=== PATIENT | female | born 1935 | race African-American/Black ===

== ENCOUNTER → 2016-07-04 | Outpatient (CLI) | payer OTHER | LOC: HYPER 07:09 | DX: I83.023 Varicose veins of left lower extremity with ulcer of ankle (principal); L97.322 Non-pressure chronic ulcer of left ankle with fat layer exposed; I11.0 Hypertensive heart disease with heart failure; I50.20 Unspecified systolic (congestive) heart failure; I73.9 Peripheral vascular disease, unspecified; I48.91 Unspecified atrial fibrillation; E78.00 Pure hypercholesterolemia, unspecified ==

== ENCOUNTER → 2016-07-18 | Outpatient (CLI) | payer OTHER | LOC: HYPER 07:20 | DX: I83.028 Varicose veins of left lower extremity with ulcer other part of lower leg (principal); L97.321 Non-pressure chronic ulcer of left ankle limited to breakdown of skin; L97.821 Non-pressure chronic ulcer of other part of left lower leg limited to breakdown of skin; I73.9 Peripheral vascular disease, unspecified; I11.0 Hypertensive heart disease with heart failure; I50.9 Heart failure, unspecified; I48.91 Unspecified atrial fibrillation; E78.00 Pure hypercholesterolemia, unspecified ==

== ENCOUNTER → 2016-08-08 | Outpatient (CLI) | payer OTHER | LOC: HYPER 07:12 | DX: I83.028 Varicose veins of left lower extremity with ulcer other part of lower leg (principal); L97.822 Non-pressure chronic ulcer of other part of left lower leg with fat layer exposed; L97.322 Non-pressure chronic ulcer of left ankle with fat layer exposed; M79.602 Pain in left arm; M25.512 Pain in left shoulder; M79.604 Pain in right leg; I73.9 Peripheral vascular disease, unspecified; I11.0 Hypertensive heart disease with heart failure; I50.20 Unspecified systolic (congestive) heart failure; I48.91 Unspecified atrial fibrillation; E78.00 Pure hypercholesterolemia, unspecified ==

== ENCOUNTER → 2016-08-21 | Outpatient (CLI) | payer OTHER | LOC: HYPER 07:08 | DX: I83.028 Varicose veins of left lower extremity with ulcer other part of lower leg (principal); L97.322 Non-pressure chronic ulcer of left ankle with fat layer exposed; L97.822 Non-pressure chronic ulcer of other part of left lower leg with fat layer exposed; I87.2 Venous insufficiency (chronic) (peripheral); I73.9 Peripheral vascular disease, unspecified; I11.0 Hypertensive heart disease with heart failure; I50.9 Heart failure, unspecified; I48.91 Unspecified atrial fibrillation; E78.00 Pure hypercholesterolemia, unspecified ==

== ENCOUNTER → 2016-09-13 | Outpatient (CLI) | payer OTHER | LOC: HYPER 08-29 14:10 | DX: I87.2 Venous insufficiency (chronic) (peripheral) (principal); L97.322 Non-pressure chronic ulcer of left ankle with fat layer exposed; L97.822 Non-pressure chronic ulcer of other part of left lower leg with fat layer exposed; I73.9 Peripheral vascular disease, unspecified; I83.028 Varicose veins of left lower extremity with ulcer other part of lower leg; I11.0 Hypertensive heart disease with heart failure; I50.9 Heart failure, unspecified; I48.91 Unspecified atrial fibrillation; E78.00 Pure hypercholesterolemia, unspecified ==

== ENCOUNTER → 2016-10-01 | Outpatient (CLI) | payer OTHER | LOC: HYPER 07:19 | DX: I83.028 Varicose veins of left lower extremity with ulcer other part of lower leg (principal); L97.322 Non-pressure chronic ulcer of left ankle with fat layer exposed; L97.822 Non-pressure chronic ulcer of other part of left lower leg with fat layer exposed; I73.9 Peripheral vascular disease, unspecified; M25.512 Pain in left shoulder; M79.604 Pain in right leg; I11.0 Hypertensive heart disease with heart failure; I50.9 Heart failure, unspecified; I48.91 Unspecified atrial fibrillation; E78.00 Pure hypercholesterolemia, unspecified ==

== ENCOUNTER → 2016-10-08 | Outpatient (CLI) | payer OTHER | LOC: HYPER 07:06 | DX: I83.028 Varicose veins of left lower extremity with ulcer other part of lower leg (principal); L97.322 Non-pressure chronic ulcer of left ankle with fat layer exposed; L97.822 Non-pressure chronic ulcer of other part of left lower leg with fat layer exposed; I73.9 Peripheral vascular disease, unspecified; I11.0 Hypertensive heart disease with heart failure; I50.9 Heart failure, unspecified; E78.00 Pure hypercholesterolemia, unspecified; I48.91 Unspecified atrial fibrillation; M79.602 Pain in left arm; M79.604 Pain in right leg; M25.512 Pain in left shoulder ==

== ENCOUNTER → 2016-10-15 | Outpatient (CLI) | payer OTHER | LOC: HYPER 06:50 | DX: I83.028 Varicose veins of left lower extremity with ulcer other part of lower leg (principal); L97.822 Non-pressure chronic ulcer of other part of left lower leg with fat layer exposed; L97.322 Non-pressure chronic ulcer of left ankle with fat layer exposed; I73.9 Peripheral vascular disease, unspecified; I87.2 Venous insufficiency (chronic) (peripheral); M79.672 Pain in left foot; M25.512 Pain in left shoulder; M79.604 Pain in right leg; I11.0 Hypertensive heart disease with heart failure; I50.9 Heart failure, unspecified; I48.91 Unspecified atrial fibrillation; E78.00 Pure hypercholesterolemia, unspecified; R26.9 Unspecified abnormalities of gait and mobility ==

== ENCOUNTER → 2016-10-29 | Outpatient (CLI) | payer OTHER | LOC: HYPER 06:53 | DX: I87.2 Venous insufficiency (chronic) (peripheral) (principal); L97.322 Non-pressure chronic ulcer of left ankle with fat layer exposed; L97.822 Non-pressure chronic ulcer of other part of left lower leg with fat layer exposed; I73.9 Peripheral vascular disease, unspecified; I11.0 Hypertensive heart disease with heart failure; I50.9 Heart failure, unspecified; I48.91 Unspecified atrial fibrillation; E78.00 Pure hypercholesterolemia, unspecified ==

== ENCOUNTER → 2016-11-19 | Outpatient (CLI) | payer OTHER | LOC: HYPER 06:54 | DX: I87.2 Venous insufficiency (chronic) (peripheral) (principal); I83.028 Varicose veins of left lower extremity with ulcer other part of lower leg; L97.321 Non-pressure chronic ulcer of left ankle limited to breakdown of skin; I73.9 Peripheral vascular disease, unspecified; M79.602 Pain in left arm; M25.512 Pain in left shoulder; M79.604 Pain in right leg; I11.0 Hypertensive heart disease with heart failure; I50.9 Heart failure, unspecified; I48.91 Unspecified atrial fibrillation; E78.00 Pure hypercholesterolemia, unspecified ==

== ENCOUNTER → 2016-12-05 | Outpatient (CLI) | payer OTHER | LOC: HYPER 06:51 | DX: I83.023 Varicose veins of left lower extremity with ulcer of ankle (principal); L97.322 Non-pressure chronic ulcer of left ankle with fat layer exposed; I83.028 Varicose veins of left lower extremity with ulcer other part of lower leg; L97.822 Non-pressure chronic ulcer of other part of left lower leg with fat layer exposed; I73.9 Peripheral vascular disease, unspecified; I11.0 Hypertensive heart disease with heart failure; I50.9 Heart failure, unspecified; I48.91 Unspecified atrial fibrillation; I87.2 Venous insufficiency (chronic) (peripheral); E78.00 Pure hypercholesterolemia, unspecified ==

== ENCOUNTER → 2016-12-26 | Outpatient (CLI) | payer OTHER | LOC: HYPER 06:42 | DX: I83.028 Varicose veins of left lower extremity with ulcer other part of lower leg (principal); I83.023 Varicose veins of left lower extremity with ulcer of ankle; L97.822 Non-pressure chronic ulcer of other part of left lower leg with fat layer exposed; L97.322 Non-pressure chronic ulcer of left ankle with fat layer exposed; I73.9 Peripheral vascular disease, unspecified; I11.0 Hypertensive heart disease with heart failure; I50.9 Heart failure, unspecified; I48.91 Unspecified atrial fibrillation; E78.00 Pure hypercholesterolemia, unspecified ==

== ENCOUNTER → 2017-01-11 | Outpatient (CLI) | payer OTHER | LOC: HYPER 01-09 10:08 | DX: T81.89XA Other complications of procedures, not elsewhere classified, initial encounter (principal); I83.028 Varicose veins of left lower extremity with ulcer other part of lower leg; L97.822 Non-pressure chronic ulcer of other part of left lower leg with fat layer exposed; L97.322 Non-pressure chronic ulcer of left ankle with fat layer exposed; I73.9 Peripheral vascular disease, unspecified; E78.00 Pure hypercholesterolemia, unspecified; I11.0 Hypertensive heart disease with heart failure; I50.9 Heart failure, unspecified; I48.91 Unspecified atrial fibrillation; Y92.89 Other specified places as the place of occurrence of the external cause; Y83.8 Other surgical procedures as the cause of abnormal reaction of the patient, or of later complication, without mention of misadventure at the time of the procedure ==

== ENCOUNTER → 2017-01-25 | Outpatient (CLI) | payer OTHER | LOC: HYPER 08:02 | DX: I87.2 Venous insufficiency (chronic) (peripheral) (principal); L97.811 Non-pressure chronic ulcer of other part of right lower leg limited to breakdown of skin; L97.822 Non-pressure chronic ulcer of other part of left lower leg with fat layer exposed; I73.9 Peripheral vascular disease, unspecified; I11.0 Hypertensive heart disease with heart failure; I50.9 Heart failure, unspecified; I48.91 Unspecified atrial fibrillation; E78.00 Pure hypercholesterolemia, unspecified ==

== ENCOUNTER → 2017-11-13 | Outpatient (CLI) | payer OTHER | LOC: HYPER 06:42 | DX: I83.028 Varicose veins of left lower extremity with ulcer other part of lower leg (principal); L97.821 Non-pressure chronic ulcer of other part of left lower leg limited to breakdown of skin; I73.9 Peripheral vascular disease, unspecified; I11.0 Hypertensive heart disease with heart failure; I50.30 Unspecified diastolic (congestive) heart failure; I48.91 Unspecified atrial fibrillation; E78.00 Pure hypercholesterolemia, unspecified ==

== ENCOUNTER → 2018-01-09 | Outpatient (CLI) | payer OTHER | LOC: HYPER 07:47 → ULTRA 07:47 → HYPER 10:20 | DX: I73.9 Peripheral vascular disease, unspecified (principal); L97.919 Non-pressure chronic ulcer of unspecified part of right lower leg with unspecified severity; I77.1 Stricture of artery ==

== ENCOUNTER → 2018-01-23 | Outpatient (CLI) | payer OTHER | LOC: HYPER 07:01 | DX: I83.028 Varicose veins of left lower extremity with ulcer other part of lower leg (principal); L97.821 Non-pressure chronic ulcer of other part of left lower leg limited to breakdown of skin; I11.0 Hypertensive heart disease with heart failure; I50.9 Heart failure, unspecified; I73.9 Peripheral vascular disease, unspecified; I42.9 Cardiomyopathy, unspecified; I48.91 Unspecified atrial fibrillation; E78.00 Pure hypercholesterolemia, unspecified; K21.9 Gastro-esophageal reflux disease without esophagitis ==

== ENCOUNTER → 2018-02-19 | Outpatient (CLI) | payer OTHER | LOC: HYPER 02-10 06:57 | DX: I83.028 Varicose veins of left lower extremity with ulcer other part of lower leg (principal); L97.821 Non-pressure chronic ulcer of other part of left lower leg limited to breakdown of skin; E78.00 Pure hypercholesterolemia, unspecified; I73.9 Peripheral vascular disease, unspecified; I11.0 Hypertensive heart disease with heart failure; I50.9 Heart failure, unspecified; I42.9 Cardiomyopathy, unspecified; I48.91 Unspecified atrial fibrillation; K21.9 Gastro-esophageal reflux disease without esophagitis ==

== ENCOUNTER → 2018-03-31 | Outpatient (CLI) | payer OTHER | LOC: HYPER 03-12 06:47 | DX: I83.028 Varicose veins of left lower extremity with ulcer other part of lower leg (principal); L97.821 Non-pressure chronic ulcer of other part of left lower leg limited to breakdown of skin; E78.00 Pure hypercholesterolemia, unspecified; I87.2 Venous insufficiency (chronic) (peripheral); I73.9 Peripheral vascular disease, unspecified; I11.0 Hypertensive heart disease with heart failure; I50.9 Heart failure, unspecified; I25.5 Ischemic cardiomyopathy; I48.91 Unspecified atrial fibrillation; K21.9 Gastro-esophageal reflux disease without esophagitis ==

== ENCOUNTER → 2018-04-23 | Outpatient (CLI) | payer OTHER | LOC: HYPER 06:32 | DX: L97.821 Non-pressure chronic ulcer of other part of left lower leg limited to breakdown of skin (principal); I73.9 Peripheral vascular disease, unspecified; I87.2 Venous insufficiency (chronic) (peripheral); I11.0 Hypertensive heart disease with heart failure; I50.9 Heart failure, unspecified; I48.91 Unspecified atrial fibrillation; E78.00 Pure hypercholesterolemia, unspecified ==

== ENCOUNTER → 2018-05-14 | Outpatient (CLI) | payer OTHER | LOC: HYPER 06:50 | DX: I83.028 Varicose veins of left lower extremity with ulcer other part of lower leg (principal); L97.221 Non-pressure chronic ulcer of left calf limited to breakdown of skin; E78.00 Pure hypercholesterolemia, unspecified; I11.0 Hypertensive heart disease with heart failure; I50.9 Heart failure, unspecified; I87.2 Venous insufficiency (chronic) (peripheral); I73.9 Peripheral vascular disease, unspecified; I25.5 Ischemic cardiomyopathy; I48.91 Unspecified atrial fibrillation; K21.9 Gastro-esophageal reflux disease without esophagitis ==